=== PATIENT | male | born 1960 | race Two or more races ===

== ENCOUNTER 2019-02-04 15:09 | Inpatient (IN) | payer MEDICAID ==
[~2019-02-04] VITALS: Ht 170.2 cm; Wt 105.2 kg
[2019-02-04] MEDS ORDERED: SODIUM CHLORIDE 0.9% 1,000 ML IV ONE (15:16)
[2019-02-04 15:50] LABS: Basophils # (auto) 0 uL; Basophils % (auto) 0.5 % (0.0-2.0); Eosinophils # (auto) 0.1 uL; Hematocrit 34.3 % (41.0-53.0); Lymphocytes # (auto) 0.9 uL; Mean Corpuscular Hemoglobin 26.1 pg (28.0-32.0); Monocytes # (auto) 0.4 uL; Neutrophils # (auto) 2.4 uL
[2019-02-04 15:51] LABS: Eosinophils % (auto) 1.9 % (0.0-7.0); Hemoglobin 11.3 g/dL (13.5-17.5); Lymphocytes % (auto) 23.4 % (10.0-50.0); Mean Corpuscular Hgb Conc. 32.9 g/dL (32.0-36.0); Mean Corpuscular Volume 79.3 fL (80.0-100.0); Monocytes % (auto) 10.5 % (0.0-12.0); Neutrophils % (auto) 63.7 % (37.0-80.0); Platelet Count (auto) 102 10^3/uL (140-450); Red Blood Cells 4.33 10^6/uL (4.5-5.90); White Blood Cell 3.8 10^3/uL (4.4-10.8)
[2019-02-04 15:57] LABS: INR 1.04 (0.9-1.15); Partial Thromboplastin Time 26.4 sec (23.64-32.05)
[2019-02-04 16:04] LABS: Amylase 103 U/L (25-115); Lipase 205 U/L (73-393)
[2019-02-04 16:05] LABS: Albumin 2.7 g/dL (3.4-5.0); Anion Gap 7 (5-15); Blood Urea Nitrogen 11 mg/dL (7-18); Calcium 8.2 mg/dL (8.5-10.1); Carbon Dioxide 27 mmol/L (21-32); Chloride 104 mmol/L (98-107); Glucose 104 mg/dL (74-106); Potassium 3.9 mmol/L (3.5-5.1); Sodium 138 mmol/L (136-145)
[2019-02-04 16:10] LABS: Alanine Aminotransferase 19 U/L (16-61); Alkaline Phosphatase 91 U/L (45-117); Aspartate Aminotransferase 21 U/L (15-37); BUN/Creatinine Ratio 14.7; Bilirubin, Total 0.4 mg/dL (0.2-1.0); GFR African American 139 mL/min; GFR Non-African American 115 mL/min; Total Protein 7.7 g/dL (6.4-8.2)
[2019-02-04] MEDS ORDERED: ACETAMINOPHEN 500 MG TAB PO PRN (19:00)
[2019-02-04] MEDS ORDERED: NITROGLYCERIN 0.4 MG SL TAB SL PRN (19:00)
[2019-02-04] MEDS ORDERED: MORPHINE SULF INJ 2 MG/ML SYRINGE 1ML IV PRN (19:00)
[2019-02-04] MEDS ORDERED: CARISOPRODOL 350 MG TAB PO PRN (19:00)
--- NOTE | 2019-02-04 20:00 | NUR ---
MS admit from ER GRECIA PEARSON admitted to tele/MS after SBAR received. Patient oriented to Juan Romero, primary RN, unit, room, bed, and unit policies regarding patient care and visiting hours. Patient weighed by bedscale and encouraged to call if they need something. The patient c/o 10/10 abdominal and back pain that exacerbated with movement. Will treat with PRN pain medication. All questions and concerns addressed, patient verbalized understanding.
[2019-02-04] MEDS: traMADol HCL 50 MG TAB PO PRN (20:23)
[2019-02-04] MEDS ORDERED: IBUP600T27 PO (20:43)
[2019-02-04] MEDS ORDERED: PANT40TA2 PO (20:43)
[2019-02-04] MEDS ORDERED: PROP10TA57 PO (20:43)
[2019-02-04] MEDS: DOCUSATE SOD 100 MG CAP PO SCH (22:05)
[2019-02-04] MEDS: PROPRANOLOL HCL 20 MG TAB PO SCH (22:07)
[2019-02-04 23:28] VITALS: BP 117/83
[2019-02-05] VITALS (7 sets, daily range): BP systolic 106–126; BP diastolic 58–70
[2019-02-05] MEDS: cefTRIAXone 1GM/50ML D5W 50 ML IV SCH ×2 (00:24→09:14)
[2019-02-05] MEDS: LACTULOSE 20Gm/30ML SOLN PO SCH ×5 (00:25→23:56)
[2019-02-05 06:37] LABS: Basophils # (auto) 0 uL; Basophils % (auto) 0.4 % (0.0-2.0); Eosinophils # (auto) 0.1 uL; Eosinophils % (auto) 1.6 % (0.0-7.0); Hematocrit 32.1 % (41.0-53.0); Hemoglobin 10.7 g/dL (13.5-17.5); Lymphocytes % (auto) 23.9 % (10.0-50.0); Mean Corpuscular Hemoglobin 26.4 pg (28.0-32.0); Mean Corpuscular Hgb Conc. 33.5 g/dL (32.0-36.0); Mean Corpuscular Volume 78.7 fL (80.0-100.0); Monocytes # (auto) 0.5 uL; Monocytes % (auto) 11.7 % (0.0-12.0); Neutrophils # (auto) 2.5 uL; Neutrophils % (auto) 62.4 % (37.0-80.0); Platelet Count (auto) 105 10^3/uL (140-450); Red Blood Cells 4.07 10^6/uL (4.5-5.90); Red Cell Distribution Width 20.6 % (11.8-14.3); White Blood Cell 4.1 10^3/uL (4.4-10.8)
[2019-02-05 06:53] LABS: Albumin 2.5 g/dL (3.4-5.0); Calcium 8.2 mg/dL (8.5-10.1); Potassium 4.2 mmol/L (3.5-5.1)
[2019-02-05 06:57] LABS: BUN/Creatinine Ratio 23.3; Bilirubin, Total 0.6 mg/dL (0.2-1.0); Total Protein 7.5 g/dL (6.4-8.2)
--- NOTE | 2019-02-05 07:15 | NUR ---
Opening Shift Note Assumed care of patient, awake and alert. No S/S of distress/SOB. Instructed on POC and to call for assist PRN, will continue to monitor for changes Q1hr and PRN. Bed set in lowest locked position for safety and call light is within reach.
[2019-02-05] MEDS: FERROUS SULFATE 325 MG TAB PO SCH ×2 (07:46→17:30)
[2019-02-05] MEDS: traMADol HCL 50 MG TAB PO PRN ×2 (07:54→16:01)
[2019-02-05] MEDS: PROPRANOLOL HCL 20 MG TAB PO SCH ×2 (09:15→22:14)
[2019-02-05] MEDS: DOCUSATE SOD 100 MG CAP PO SCH ×2 (09:15→22:13)
--- NOTE | 2019-02-05 13:13 | NUR ---
Hospitalist at bedside Dr. Vyas updated pt and family on POC.
[2019-02-05] MEDS ORDERED: CYCLOBENZAPRINE HCL 10 MG TAB PO PRN (14:30)
--- NOTE | 2019-02-05 15:30 | NUR ---
Pt off unit Patient taken down to radiology via gurney. No signs and symptoms distress/SOB/pain noted.
--- NOTE | 2019-02-05 18:56 | NUR ---
Endorsed care to NOC RN.
--- NOTE | 2019-02-05 19:30 | NUR ---
Opening Shift Note Assumed care of patient, awake and alert. No S/S of distress/SOB. Patient states his pain is better and tolerable at this time. However refuses to reposition or raise HOB, stating "my spasms get really bad with movement". Instructed on POC and to call for assist PRN, will continue to monitor for changes Q1hr and PRN. Bed set in lowest locked position for safety and call light is within reach.
--- NOTE | 2019-02-05 22:10 | NUR ---
PAIN PATIENT REQUEST MEDICATION FOR HIS BACK SPASMS, RATING PAIN 8/10. WILL MEDICATE PER ORDER.
--- NOTE | 2019-02-06 02:46 | NUR ---
PATIENT AMBULATED TO RESTROOM D/T URGE TO PASS BM, WITH WALKER AND 2 PEOPLE-STANDBY ASSIST. NO BOWEL MOVEMENT PATIENT TOLERATED WELL
[2019-02-06] MEDS: traMADol HCL 50 MG TAB PO PRN (04:37)
[2019-02-06 05:00] VITALS: BP 116/73
[2019-02-06 05:31] LABS: Basophils # (auto) 0 uL; Eosinophils # (auto) 0.1 uL; Hemoglobin 11.2 g/dL (13.5-17.5); Mean Corpuscular Hemoglobin 26.4 pg (28.0-32.0); Monocytes # (auto) 0.5 uL; Neutrophils # (auto) 2.9 uL
[2019-02-06 05:33] LABS: Basophils % (auto) 0.7 % (0.0-2.0); Hematocrit 33.4 % (41.0-53.0); Lymphocytes # (auto) 0.9 uL; Lymphocytes % (auto) 20.9 % (10.0-50.0); Mean Corpuscular Hgb Conc. 33.7 g/dL (32.0-36.0); Mean Corpuscular Volume 78.6 fL (80.0-100.0); Monocytes % (auto) 12.1 % (0.0-12.0); Neutrophils % (auto) 64.3 % (37.0-80.0); Platelet Count (auto) 116 10^3/uL (140-450); Red Blood Cells 4.25 10^6/uL (4.5-5.90); White Blood Cell 4.5 10^3/uL (4.4-10.8)
[2019-02-06] MEDS: LACTULOSE 20Gm/30ML SOLN PO SCH ×2 (05:46→12:17)
[2019-02-06 05:49] LABS: BUN/Creatinine Ratio 20.8; Calcium 8.2 mg/dL (8.5-10.1); Potassium 4.2 mmol/L (3.5-5.1)
--- NOTE | 2019-02-06 07:14 | NUR ---
Opening Shift Note Assumed care of patient, awake and alert. No S/S of distress/SOB or pain. Instructed on POC and to call for assist PRN, will continue to monitor for changes Q1hr and PRN.
[2019-02-06] MEDS: FERROUS SULFATE 325 MG TAB PO SCH (08:00)
--- NOTE | 2019-02-06 08:00 | NUR ---
PATIENT OFF FLOOR FOR HYDA SCAN
[2019-02-06 09:00] VITALS: BP 101/63
[2019-02-06 09:30] LABS: Hepatitis A Ab IgM Negative; Hepatitis B Core IgM Negative; Hepatitis B Surface Antigen Negative (Negative); Hepatitis C Antibody Negative (Negative)
[2019-02-06] MEDS: DOCUSATE SOD 100 MG CAP PO SCH (09:43)
[2019-02-06] MEDS: cefTRIAXone 1GM/50ML D5W 50 ML IV SCH (09:49)
--- NOTE | 2019-02-06 09:50 | NUR ---
Patient back to floor from [facility].
[2019-02-06] MEDS: PROPRANOLOL HCL 20 MG TAB PO SCH (09:59)
[2019-02-06] MEDS ORDERED: PANTOPRAZOLE 40 MG TAB PO SCH (10:00)
[2019-02-06] MEDS ORDERED: FURO20TA3 PO (11:24)
[2019-02-06 13:00] VITALS: BP 95/59
[2019-02-06 14:41] VITALS: BP 101/63
== END 2019-02-06 15:48 | disposition home or self-care (01) | DRG 280 ==
LOC: EDUNIT# 15:09 → ER 15:09 → OVERFLOW 15:10 → WEST WING 19:55
PROVIDERS: ADMIT Nurse Practitioner Acute Care; ATTEND Internal Medicine
DX: K70.31 Alcoholic cirrhosis of liver with ascites (principal); D69.59 Other secondary thrombocytopenia; K80.10 Calculus of gallbladder with chronic cholecystitis without obstruction; D50.9 Iron deficiency anemia, unspecified; F10.10 Alcohol abuse, uncomplicated; D72.819 Decreased white blood cell count, unspecified; M54.9 Dorsalgia, unspecified; I10 Essential (primary) hypertension; I70.0 Atherosclerosis of aorta; E66.9 Obesity, unspecified; Y90.9 Presence of alcohol in blood, level not specified; G89.29 Other chronic pain; K21.9 Gastro-esophageal reflux disease without esophagitis; K40.90 Unilateral inguinal hernia, without obstruction or gangrene, not specified as recurrent; K59.00 Constipation, unspecified; W18.39XA Other fall on same level, initial encounter; Y93.89 Activity, other specified; Y92.89 Other specified places as the place of occurrence of the external cause; Y99.8 Other external cause status; Z68.36 Body mass index [BMI] 36.0-36.9, adult
CPT/HCPCS: 36415; 71045; 72131; 73700; 74176; 76700; 78226; 80048; 80053; 80074; 82140; 82150; 83605; 83690; 83735; 84484; 85025; 85610; 85730; 87040; 87081; 96361; 96365; 97116; 97530; G0378; J0696